=== PATIENT | male | born 1965 | race Caucasian/White ===

== ENCOUNTER 2016-12-29 09:07 | Emergency (ER) | payer OTHER ==
[2016-12-29 09:15] VITALS: BP 146/94
[2016-12-29] MEDS ORDERED: Al Hydrox/Mg Hydrox/Simet LIQ* 30 ML UDC PO ONE (09:33)
[2016-12-29] MEDS ORDERED: Lidocaine 2% VISCOUS* 15 ML UDC PO ONE (09:33)
--- NOTE | 2016-12-29 09:40 | UC ---
Cardiac HPI - HPI Summary HPI Summary: odd sensation in anterior chest today. Has been fighting a viral thing for a week or two, has felt chilled, low energy, got hoarse. No cough. No vomiting or diarrhea. No real sinus congestion. Today at work he noticed a sensation in anterior chest he can't really describe. Worse with a deep breath. Sort of a tight, stabbing feeling with deep breath. Not burning. No indigestion. No history of similar pain, no CAD history. - History of Current Complaint Chief Complaint: UCGeneralIllness Stated Complaint: CHEST COMPLAINT Time Seen by Provider: 12/29/16 09:14 Hx Obtained From: Patient Onset/Duration: Gradual Onset, Lasting Hours - 4 Timing: Constant Initial Severity: Mild Current Severity: Mild Chest Pain Location: Mid Sternal Character: Sharp/Stabbing - really can't describe it. A vague sensation, mildly painful with deep breath Aggravating: Deep Breaths Alleviating: Nothing Associated Signs & Symptoms: Positive: Weakness - past few days, low energy in general, Dizziness - slight light-headedness today. Negative: Vision Changes, Anxiety, Recent Stress, Headaches, Numbness, Tingling, SOB, Syncope, Fever, Diaphoresis, Nausea/Vomiting, Palpitations, Cough, Hemoptysis, Back Pain, Abdominal Pain, Calf Pain/Swelling - Risk Factors Pulmonary Embolism Risk Factors: Negative Cardiac Risk Factors: Negative Atrial Fibrillation: Negative TAD Risk Factors: Negative - Allergy/Home Medications Allergies/Adverse Reactions: Allergies Allergy/AdvReac Type Severity Reaction Status Date / Time No Known Allergies Allergy Verified 12/29/16 09:09 PMH/Surg Hx/FS Hx/Imm Hx Previously Healthy: Yes Endocrine History Of: Denies: Diabetes, Thyroid Disease Cardiovascular History Of: Denies: Cardiac Disorders, Hypertension, Pacemaker/ICD Respiratory History Of: Denies: COPD, Asthma GI/ History Of: Denies: Ulcer, Renal Disease - Surgical History Surgical History: Yes Surgery Procedure, Year, and Place: HERNIA SURGERY X3 - Family History Known Family History: Positive: Hypertension Family History: NON CONTRIBUTORY - Social History Occupation: Employed Full-time Lives: With Family Alcohol Use: Occasionally Substance Use Type: None Smoking Status (MU): Never Smoked Tobacco Have You Smoked in the Last Year: No - Immunization History Most Recent Influenza Vaccination: did not receive this flu season Most Recent Tetanus Shot: received in past Most Recent Pneumonia Vaccination: never received Review of Systems Constitutional: Negative Skin: Negative Eyes: Negative ENT: Other Respiratory: Negative Cardiovascular: Chest Pain - "Not really pain" Gastrointestinal: Negative Genitourinary: Negative Motor: Negative Neurovascular: Negative Musculoskeletal: Negative Neurological: Negative Psychological: Negative All Other Systems Reviewed And Are Negative: Yes Physical Exam Triage Information Reviewed: Yes Appearance: Well-Appearing, No Pain Distress, Well-Nourished Vital Signs: Initial Vital Signs Temp 97.4 F 12/29/16 09:09 Pulse 64 12/29/16 09:09 Resp 17 12/29/16 09:09 BP 146/94 12/29/16 09:09 Pulse Ox 96 12/29/16 09:09 Vital Signs Reviewed: Yes Eye Exam: Normal ENT: Positive: Pharynx normal, TMs normal, Muffled/hoarse voice - mild hoarseness Neck exam: Normal Neck: Positive: Supple Respiratory Exam: Normal Respiratory: Positive: Lungs clear, Normal breath sounds, No respiratory distress, No accessory muscle use Cardiovascular Exam: Normal Musculoskeletal Exam: Normal Neurological Exam: Normal Psychological Exam: Normal Skin Exam: Normal Diagnostics - Laboratory Diagnostic Studies Completed/Ordered: EKG unremarkable Re-Evaluation - Re-Evaluation First Eval Change: Unchanged - no change in chest discomfort with the GI cocktail. If anything, it's worse and now his headache is terrible. Aches all over. - Differential Diagnoses - Chest Pain Differential Diagnosis/HQI/PQRI: Acute [place], Angina, Aortic Aneurysm, Lower Respiratory Infection, Pulmonary Edema - Clinical Impression Provider Diagnoses: viral syndrome Discharge - Discharge Plan Condition: Stable Disposition: HOME Patient Education Materials: Viral Syndrome (ED) Referrals: Torito Leung MD [Primary Care Provider] - Additional Instructions: It's likely this is the beginning of a viral illness. Go home today, put heat on the chest, take some Tylenol, and crawl into bed. If you get short of breath or other concerning symptoms start up, return here or go to the ER.
== END 2016-12-29 10:07 | disposition home or self-care (01) ==
LOC: UCEAST 09:07
DX: B34.9 Viral infection, unspecified (principal)
CPT/HCPCS: 93005; 99201; A9270-GY; G0463